=== PATIENT | female | born 1970 | race Two or more races ===

== ENCOUNTER 2019-02-20 09:20 | Inpatient (IN) | payer MEDICAID ==
[2019-02-20] VITALS (11 sets, daily range): BP systolic 104–147; BP diastolic 63–95
[~2019-02-20] VITALS: Ht 162.6 cm; Wt 84.8 kg
--- NOTE | 2019-02-20 09:30 | NUR ---
ED Nurse Note: Patient walked into ED from home c/o periumblicial middle quadrant abdominal pain 10/10 for 1 day, patient reports nausea and vomiting. patient is alert awake x4 ambulatory steady gait, patient on a hopsital gown and placed on a monitor car operator. patient's vital signs stable.
[2019-02-20] MEDS ORDERED: Morphine Sulfate 4mg/ml Inj (IV USE ONLY) IVP ONE ×2 (09:45→13:00)
[2019-02-20] MEDS ORDERED: Isovue-300 100ml vial INJ PRN (09:45)
[2019-02-20 09:49] LABS: APPEARANCE,URINE CLEAR; BILIRUBIN, URINE NEGATIVE (NEGATIVE); COLOR,URINE PALE YELLOW; GLUCOSE, URINE (UA) NEGATIVE (NEGATIVE); KETONES,URINE 1+ (NEGATIVE); LEUKOCYTE ESTERASE ,URINE NEGATIVE (NEGATIVE); NITRITE,URINE NEGATIVE (NEGATIVE); PH,URINE 6 (4.5-8.0); PROTEIN,URINE 1+ (NEGATIVE); UROBILINOGEN,URINE NORMAL MG/DL (0.0-1.0)
[2019-02-20 09:50] LABS: BASOPHILS % (AUTO) 0.9 % (0.0-2.0); EOSINOPHILS % (AUTO) 2.1 % (0.0-3.0); HEMATOCRIT 43.5 % (37.0-47.0); HEMOGLOBIN 14.8 G/DL (12.0-16.0); LYMPHOCYTES % (AUTO) 31.7 % (20.0-45.0); MEAN CORPUSCULAR VOLUME 88 FL (80-99); MONOCYTES % (AUTO) 5.6 % (1.0-10.0); NEUTROPHILS % (AUTO) 59.8 % (45.0-75.0); PLATELET COUNT 233 K/UL (150-450); RED BLOOD COUNT 4.97 M/UL (4.20-5.40); RED CELL DISTRIBUTION WIDTH 11.6 % (11.6-14.8); WHITE BLOOD COUNT 9.2 K/UL (4.8-10.8)
[2019-02-20 10:03] LABS: ANION GAP 12 mmol/L (5-15); BLOOD UREA NITROGEN 12 mg/dL (7-18); CALCIUM 8.3 MG/DL (8.5-10.1); CARBON DIOXIDE 27 MMOL/L (21-32); CHLORIDE 104 MMOL/L (98-107); CREATININE 0.7 MG/DL (0.55-1.30); POTASSIUM 3.2 MMOL/L (3.5-5.1); SODIUM 143 MMOL/L (136-145)
[2019-02-20 10:12] LABS: ALANINE AMINOTRANSFERASE 63 U/L (12-78); ALBUMIN 3.8 G/DL (3.4-5.0); ALBUMIN/GLOBULIN RATIO 0.8 (1.0-2.7); ALKALINE PHOSPHATASE 104 U/L (46-116); ASPARTATE AMINO TRANSFERASE 44 U/L (15-37); BILIRUBIN,TOTAL 0.4 MG/DL (0.2-1.0)
--- NOTE | 2019-02-20 11:10 | NUR ---
ED Nurse Note: patient taken to CT scan.
--- NOTE | 2019-02-20 11:23 | NUR ---
ED Nurse Note: patient came back from CT
[2019-02-20] MEDS ORDERED: Tubing IV Secondary IV ONE (11:57)
--- NOTE | 2019-02-20 11:59 | Diagnostic Imaging Report ---
Clinical Indication: . Umbilical abdominal pain, 10 out of 10 for one day, nausea, vomiting Technique: No oral contrast utilized, per emergency room physician request IV administration nonionic contrast. Venous phase spiral acquisition obtained through the abdomen and pelvis. Multiplanar reconstructions were generated. Total dose length product 957 mGycm. CTDIvol(s) 16 mGy. Dose reduction achieved using automated exposure control Comparison: none Findings: Lack of enteric contrast limits assessment of the GI tract. There is a ventral hernia adjacent to the umbilicus. This contains a loop of distal ileum. Small bowel leading into the hernia sac is only minimally prominent. However, there is some infiltration of the perienteric fat within the hernia sac. Small bowel distal to the hernia is nondistended. The appendix is not definitely visualized, but no findings to suggest acute appendicitis are evident. There is no evidence of colonic diverticulosis or diverticulitis. No free or loculated intraperitoneal gas or fluid is evident. The distal esophagus, stomach, duodenum are unremarkable. The liver is mildly hypoattenuating, consistent with mild fatty change. No focal abnormality. The gallbladder, bile ducts, pancreas, spleen, adrenals, kidneys are unremarkable. No retroperitoneal or mesenteric mass or adenopathy. No pelvic mass or adenopathy. The uterus is absent. The included lung bases are clear except for minimal lingular atelectasis or scar. The bones are unremarkable. Impression: Limited assessment of the GI tract, due to lack of enteric contrast administration Ventral hernia adjacent to the umbilicus, containing a loop of small bowel. Slight infiltration of the fat within the hernia sac raises the possibility of very mild strangulation, and very slight prominence of the entering small bowel raises possibility of a mild degree of obstruction. Correlation with clinical findings is recommended. No other acute abnormality Fatty liver Findings discussed by phone with Dr. Dang in the emergency room at the time of interpretation The CT scanner at [facility] is accredited by the [employer] and the scans are performed using protocols designed to limit radiation exposure to as low as reasonably achievable to attain images of sufficient resolution adequate for diagnostic evaluation.
--- NOTE | 2019-02-20 12:20 | NUR ---
ED Nurse Note: patient educated to remain NPO, nothing by mouth patient verbalized understanding.
--- NOTE | 2019-02-20 12:43 | NUR ---
ED Nurse Note: Report given to Thalia RN, endorsed all plan of care to Thalia Rn.
[2019-02-20] MEDS ORDERED: Ketorolac 30mg Inj IV ONE (13:00)
--- NOTE | 2019-02-20 13:12 | NUR ---
ED Nurse Note: patient transferred to 3E with all of her belongings with LEARNING AND DEVELOPMENT INTERN.
--- NOTE | 2019-02-20 13:15 | NUR ---
NURSE NOTES: Received report from Thalia RN, Tunisian speaking pt a/a/o x4 laying in bed with no signs of distress or other issues at this time. no skin issues. pt able to ambulate around the room with steady gait. IV left AC gauge#18 heplock. call light within reach, bed in lowest position. side rales up x2. I will f/u as needed.
--- NOTE | 2019-02-20 13:16 | Emergency Room Report ---
History of Present Illness General Chief Complaint: Abdominal Pain Source: Patient Present Illness HPI 48-year-old female presents ED for evaluation. Complaining of abdominal pain with nausea and vomiting which started today. Pain is sharp, 9 out of 10, nonradiating. Localized to mid to lower abdomen on the right. Denies fevers or chills. Denies chest pain or shortness of breath. Denies diarrhea. No other aggravating relieving factors. Denies any other associated symptoms Allergies: Coded Allergies: No Known Allergies (Unverified , 02/20/19) Patient History Past Medical History: none Past Surgical History: none Pertinent Family History: none Social History: Denies: smoking, alcohol use, drug use Now: No Immunizations: UTD Reviewed Nursing Documentation: PMH: Agreed; PSxH: Agreed Nursing Documentation-PMH Past Medical History: No Stated History Review of Systems All Other Systems: negative except mentioned in HPI Physical Exam Vital Signs Date Time Temp Pulse Resp B/P (MAP) Pulse Ox O2 Delivery O2 Flow Rate FiO2 02/20/19 09:23 97.5 58 16 138/98 (111) 100 Room Air Sp02 EP Interpretation: reviewed, normal General Appearance: no apparent distress, alert, GCS 15, non-toxic Head: normocephalic, atraumatic Eyes: bilateral eye normal inspection, bilateral eye PERRL ENT: hearing grossly normal, normal pharynx, no angioedema, normal voice Neck: full range of motion, supple/symm/no masses Respiratory: chest non-tender, lungs clear, normal breath sounds, speaking full sentences Cardiovascular #1: regular rate, rhythm, no edema Cardiovascular #2: 2+ carotid (R), 2+ carotid (L), 2+ radial (R), 2+ radial (L) , 2+ dorsalis pedis (R), 2+ dorsalis pedis (L) Gastrointestinal: normal bowel sounds, soft, non-distended, tenderness - palpable hernia mid abdomen. nonreducible Rectal: deferred Genitourinary: normal inspection, no CVA tenderness Musculoskeletal: back normal, gait/station normal, normal range of motion, non- tender Neurologic: alert, oriented x3, responsive, motor strength/tone normal, sensory intact, speech normal Psychiatric: judgement/insight normal, memory normal, mood/affect normal, no suicidal/homicidal ideation Reflexes: 3+ bicep (R), 3+ bicep (L), 3+ tricep (R), 3+ tricep (L), 3+ knee (R) , 3+ knee (L) Lymphatic: no adenopathy Medical Decision Making Diagnostic Impression: Primary Impression: Ventral hernia with bowel obstruction ER Course Hospital Course 48 yo F presents with abd pain Differential diagnoses include: abscess, hernia, SBO Clinical course Patient placed on stretcher. hall monitor. After initial history and physical I ordered labs, IV fluids, UA, pain medication and CT scan Labs - no leukocytosis, Hb/Hct stable, electrolytes ok CT abdomen and pelvis -ventral hernia containing small bowel. some incarceration. some evidence of obstruction Dr Farias consulted. will take patient to OR Case discussed with Dr. Leos and he agreed to accept the patient to his service for further care and support I feel this is a highly complex case requiring extensive working including EKG/ Rhythm strip, Xray/CT/US, Blood/urine lab work, repeat exams while in ED, and administration of strong opiates/narcotics for pain control, admission to hospital or close patient follow up. Diagnosis - ventral hernia with bowel obstruction Patient admitted to floor in serious condition Labs Test 02/20/19 09:29 02/20/19 09:34 02/20/19 12:20 Urine Color Pale yellow Urine Appearance Clear Urine pH 6 (4.5-8.0) Urine Specific [place] 1.015 (1.005-1.035) Urine Protein 1+ (NEGATIVE) Urine Glucose (UA) Negative (NEGATIVE) Urine Ketones 1+ (NEGATIVE) Urine Blood Negative (NEGATIVE) Urine Nitrite Negative (NEGATIVE) Urine Bilirubin Negative (NEGATIVE) Urine Urobilinogen Normal MG/DL (0.0-1.0) Urine Leukocyte Esterase Negative (NEGATIVE) Urine RBC 0 /HPF (0 - 2) Urine WBC 0-2 /HPF (0 - 2) Urine Squamous Epithelial Cells Few /LPF (NONE/OCC) Urine Bacteria Moderate /HPF (NONE) White Blood Count 9.2 K/UL (4.8-10.8) Red Blood Count 4.97 M/UL (4.20-5.40) Hemoglobin 14.8 G/DL (12.0-16.0) Hematocrit 43.5 % (37.0-47.0) Mean Corpuscular Volume 88 FL (80-99) Mean Corpuscular Hemoglobin 29.7 PG (27.0-31.0) Mean Corpuscular Hemoglobin Concent 34.0 G/DL (32.0-36.0) Red Cell Distribution Width 11.6 % (11.6-14.8) Platelet Count 233 K/UL (150-450) Mean Platelet Volume 8.3 FL (6.5-10.1) Neutrophils (%) (Auto) 59.8 % (45.0-75.0) Lymphocytes (%) (Auto) 31.7 % (20.0-45.0) Monocytes (%) (Auto) 5.6 % (1.0-10.0) Eosinophils (%) (Auto) 2.1 % (0.0-3.0) Basophils (%) (Auto) 0.9 % (0.0-2.0) Sodium Level 143 MMOL/L (136-145) Potassium Level 3.2 MMOL/L (3.5-5.1) Chloride Level 104 MMOL/L (98-107) Carbon Dioxide Level 27 MMOL/L (21-32) Anion Gap 12 mmol/L (5-15) Blood Urea Nitrogen 12 mg/dL (7-18) Creatinine 0.7 MG/DL (0.55-1.30) Estimat Glomerular Filtration Rate > 60 mL/min (>60) Glucose Level 172 MG/DL (74-106) Calcium Level 8.3 MG/DL (8.5-10.1) Total Bilirubin 0.4 MG/DL (0.2-1.0) Aspartate Amino Transf (AST/SGOT) 44 U/L (15-37) Alanine Aminotransferase (ALT/SGPT) 63 U/L (12-78) Alkaline Phosphatase 104 U/L (46-116) Total Protein 8.3 G/DL (6.4-8.2) Albumin 3.8 G/DL (3.4-5.0) Globulin 4.5 g/dL Albumin/Globulin Ratio 0.8 (1.0-2.7) Lipase 106 U/L (73-393) Human Chorionic Gonadotropin, Qual Negative (NEGATIVE) Prothrombin Time 10.2 SEC (9.30-11.50) Prothromb Time International Ratio 1.0 (0.9-1.1) Activated Partial Thromboplast Time 27 SEC (23-33) CT/MRI/US Diagnostic Results CT/MRI/US Diagnostic Results : Imaging Test Ordered: CT A/P Impression Findings: Lack of enteric contrast limits assessment of the GI tract. There is a ventral hernia adjacent to the umbilicus. This contains a loop of distal ileum. Small bowel leading into the hernia sac is only minimally prominent. However, there is some infiltration of the perienteric fat within the hernia sac. Small bowel distal to the hernia is nondistended. The appendix is not definitely visualized, but no findings to suggest acute appendicitis are evident. There is no evidence of colonic diverticulosis or diverticulitis. No free or loculated intraperitoneal gas or fluid is evident. The distal esophagus, stomach, duodenum are unremarkable. The liver is mildly hypoattenuating, consistent with mild fatty change. No focal abnormality. The gallbladder, bile ducts, pancreas, spleen, adrenals, kidneys are unremarkable. No retroperitoneal or mesenteric mass or adenopathy. No pelvic mass or adenopathy. The uterus is absent. The included lung bases are clear except for minimal lingular atelectasis or scar. The bones are unremarkable. Last Vital Signs Date Time Temp Pulse Resp B/P (MAP) Pulse Ox O2 Delivery O2 Flow Rate FiO2 02/20/19 10:30 97.5 02/20/19 09:41 56 21 134/95 100 Room Air Status: improved Disposition: ADMITTED INPATIENT Condition: Serious Referrals: NOT CHOSEN IPA/,REFERRING (PCP) Fahad Dang MD Feb 20, 2019 13:15
[2019-02-20] MEDS ORDERED: Bupivacaine 0.25% Inj 30ml INJ ONE ×2 (15:02→17:34)
[2019-02-20] MEDS ORDERED: Bacitracin 50000 Units Vial ONE (15:03)
[2019-02-20] MEDS ORDERED: NS Irrig 1000ml IRRIG ONE ×2 (15:48→16:34)
--- NOTE | 2019-02-20 15:54 | NUR ---
NURSE NOTES: Called and left message to Dr. Leos at [phone] to f/u with admitting orders. awaiting for response.
[2019-02-20] MEDS ORDERED: NS Irrig 1000ml ONE (16:01)
[2019-02-20] MEDS ORDERED: Sterile Water Irrig 1000ml IRRIG ONE (16:01)
[2019-02-20] MEDS ORDERED: LR 1000ml ONE (16:01)
--- NOTE | 2019-02-20 16:04 | Pre-Procedure Note/Attestation ---
Pre-Procedure Note/Attestation Complete Prior to Procedure Planned Procedure: not applicable Procedure Narrative: ventral herniorrhaphy with application of mesh Indications for Procedure Pre-Operative Diagnosis: incarcerated ventral hernia Attestation I attest that I discussed the nature of the procedure; its benefits; risks and complications; and alternatives (and the risks and benefits of such alternatives ), prior to the procedure, with the patient (or the patient's legal community service representative). I attest that, if there was a reasonable possibility of needing a blood transfusion, the patient (or the patient's legal community service representative) was given the [facility] standardized written summary, pursuant to the [place] Blood Safety Act ([place] Health and Safety Code # 1645, as amended). I attest that I re-evaluated the patient just prior to the surgery and that there has been no change in the patient's H&P, except as documented below: Alia Farias MD Feb 20, 2019 16:04
[2019-02-20] MEDS ORDERED: Sodium Chloride 10ml vial INJ ONE (16:10)
[2019-02-20] MEDS ORDERED: Lidocaine 1% MPF 10mg/ml 5ml ONE (16:10)
[2019-02-20] MEDS ORDERED: Dexamethasone 4mg/ml vial ONE (16:12)
[2019-02-20] MEDS ORDERED: LR 1000ml 1,000 ML IVLG SCH (16:12)
[2019-02-20] MEDS ORDERED: DiphenhydrAMINE 50mg/ml Inj IVP PRN (16:15)
[2019-02-20] MEDS ORDERED: Labetalol 5mg/ml 20ml vial IV PRN (16:15)
[2019-02-20] MEDS ORDERED: Hydromorphone 0.5mg/0.5ml inj IVP PRN ×2 (16:15→18:00)
[2019-02-20] MEDS ORDERED: HYDROcodone/Acetamin 7.5/325 tab ORAL PRN (16:15)
[2019-02-20] MEDS ORDERED: Ketorolac 30mg Inj IV PRN ×2 (16:15)
[2019-02-20] MEDS ORDERED: HYDROcodone/Acetamin 5/325 tab ORAL PRN (16:15)
[2019-02-20] MEDS ORDERED: Atropine Sulfate 0.4mg/ml inj IVP PRN (16:15)
[2019-02-20] MEDS ORDERED: Metoclopramide 10mg/2ml Inj IVP PRN ×2 (16:15→18:00)
[2019-02-20] MEDS ORDERED: Midazolam 2mg/2ml Inj IVP PRN (16:15)
[2019-02-20] MEDS ORDERED: LORazepam Inj 2mg/ml 1ml IV PRN (16:15)
[2019-02-20] MEDS ORDERED: oxyCODONE HCL/Acetaminophen 5/325mg ORAL PRN (16:15)
[2019-02-20] MEDS ORDERED: fentaNYL 100 mcg/2 mL IV PRN (16:15)
[2019-02-20] MEDS ORDERED: Meperidine 50mg/ml Inj(FOR RIGORS ONLY) IVP PRN (16:15)
--- NOTE | 2019-02-20 16:16 | Anethesia Preoperative Eval ---
Anesthesia Pre-op PMH/ROS General Date of Evaluation: Feb 20, 2019 Time of Evaluation: 16:01 Anesthesiologist: Julianne ASA Score: ASA 3 Mallampati Score Class I : Soft palate, uvula, fauces, pillars visible Class II: Soft palate, uvula, fauces visible Class III: Soft palate, base of uvula visible Class IV: Only hard plate visible Mallampati Classification: Class II Surgeon: Jarrett Diagnosis: Ventral Hernia Surgical Procedure: Ventral Hernia Repair Anesthesia History: none Family History: no anesthesia problems Allergies: Coded Allergies: No Known Allergies (Unverified , 02/20/19) Medications: see eMAR Patient NPO?: Yes NPO Date: Feb 20, 2019 NPO Time: 1200 Past Medical History Cardiovascular: Reports: HTN Gastrointestinal/Genitourinary: Reports: GERD Hematology/Immune: Reports: anemia, other - Ovarian CA Other: obesity - BMI 34 PSxH Narrative: MARLEY Anesthesia Pre-op Phys. Exam Physician Exam Last Vital Signs Date Time Temp Pulse Resp B/P (MAP) Pulse Ox O2 Delivery O2 Flow Rate FiO2 02/20/19 13:36 97.5 02/20/19 13:15 Room Air 02/20/19 13:12 57 16 132/92 100 Constitutional: NAD Neurologic: CN 2-12 intact Cardiovascular: RRR Respiratory: CTA Gastrointestinal: S/NT/ND Airway Exam Mallampati Score: Class II MO: full ROM: full Teeth: missing, intact Anesthesia Pre-op A/P Labs Hematology Test 02/20/19 09:34 White Blood Count 9.2 K/UL (4.8-10.8) Red Blood Count 4.97 M/UL (4.20-5.40) Hemoglobin 14.8 G/DL (12.0-16.0) Hematocrit 43.5 % (37.0-47.0) Mean Corpuscular Volume 88 FL (80-99) Mean Corpuscular Hemoglobin 29.7 PG (27.0-31.0) Mean Corpuscular Hemoglobin Concent 34.0 G/DL (32.0-36.0) Red Cell Distribution Width 11.6 % (11.6-14.8) Platelet Count 233 K/UL (150-450) Mean Platelet Volume 8.3 FL (6.5-10.1) Neutrophils (%) (Auto) 59.8 % (45.0-75.0) Lymphocytes (%) (Auto) 31.7 % (20.0-45.0) Monocytes (%) (Auto) 5.6 % (1.0-10.0) Eosinophils (%) (Auto) 2.1 % (0.0-3.0) Basophils (%) (Auto) 0.9 % (0.0-2.0) Coagulation Test 02/20/19 12:20 Prothrombin Time 10.2 SEC (9.30-11.50) Prothromb Time International Ratio 1.0 (0.9-1.1) Activated Partial Thromboplast Time 27 SEC (23-33) Chemistry Test 02/20/19 09:34 Sodium Level 143 MMOL/L (136-145) Potassium Level 3.2 MMOL/L (3.5-5.1) L Chloride Level 104 MMOL/L (98-107) Carbon Dioxide Level 27 MMOL/L (21-32) Anion Gap 12 mmol/L (5-15) Blood Urea Nitrogen 12 mg/dL (7-18) Creatinine 0.7 MG/DL (0.55-1.30) Estimat Glomerular Filtration Rate > 60 mL/min (>60) Glucose Level 172 MG/DL (74-106) H Calcium Level 8.3 MG/DL (8.5-10.1) L Total Bilirubin 0.4 MG/DL (0.2-1.0) Aspartate Amino Transf (AST/SGOT) 44 U/L (15-37) H Alanine Aminotransferase (ALT/SGPT) 63 U/L (12-78) Alkaline Phosphatase 104 U/L (46-116) Total Protein 8.3 G/DL (6.4-8.2) H Albumin 3.8 G/DL (3.4-5.0) Globulin 4.5 g/dL Albumin/Globulin Ratio 0.8 (1.0-2.7) L Lipase 106 U/L (73-393) Human Chorionic Gonadotropin, Qual Negative (NEGATIVE) Serum Test Test 02/20/19 09:34 Human Chorionic Gonadotropin, Qual Negative (NEGATIVE) Risk Assessment & Plan Assessment: ASA 3 Plan: GA, SED, GlideScope Go Status Change Before Surgery: No Pre-Antibiotics Dru Gram Ancef IV Given Within 1 Hr of Incision: Yes Time Given: 16:21 Yared Whitaker MD Feb 20, 2019 16:16
[2019-02-20] MEDS ORDERED: Propofol 200mg/20ml IV ONE (16:17)
[2019-02-20] MEDS ORDERED: Metoprolol 5mg/5ml Inj ONE (16:33)
--- NOTE | 2019-02-20 16:49 | Immediate Post-Op Evaluation ---
Immediate Post-Op Evalulation Immediate Post-Op Evalulation Procedure: Ventral Hernia Repair Date of Evaluation: Feb 20, 2019 Time of Evaluation: 18:08 IV Fluids: 500 LR Blood Products: 0 Estimated Blood Loss: 25 Urinary Output: 220 Blood Pressure Systolic: 127 Blood Pressure Diastolic: 92 Pulse Rate: 95 Respiratory Rate: 16 O2 Sat by Pulse Oximetry: 99 Temperature (Fahrenheit): 98.2 Pain Score (1-10): 2 Nausea: No Vomiting: No Complications 0 Patient Status: awake, reacts, patent, extubated, none Hydration Status: adequate Dru Gram Ancef IV Given Within 1 Hr of Incision: Yes Time Given: 16:21 Yared Whitaker MD Feb 20, 2019 16:49
[2019-02-20] MEDS ORDERED: Glycopyrrolate 0.2mg/ml 1ml Vial ONE ×2 (16:56→17:01)
--- NOTE | 2019-02-20 17:00 | Pre-op HX & Phy Repo 2 SIG ---
DATE OF ADMISSION: 02/20/2019 PREOPERATIVE CONSULTATION REASON FOR CONSULTATION: Abdominal pain. REQUESTING PHYSICIAN: Emergency room physician. HISTORY OF PRESENT ILLNESS: This is a 48-year-old female, who presented to emergency room complaining of abdominal pain. She stated that the pain is located at the periumbilical mainly above the umbilicus. This is steady. No radiation. This pain has been associated with nausea and vomiting. She had a normal bowel movement today. She stated that she has been having this pain off and on for about 7 months, but since last night the pain has been steady and very severe and it had not released. PAST MEDICAL HISTORY: She denies allergies, asthma, diabetes, hypertension, cardiac or renal diseases. PAST SURGICAL HISTORY: Include 2 C-sections and hysterectomy due to the ovarian cancer 6 years ago. MEDICATIONS: Omeprazole. SOCIAL HISTORY: The patient is a 48-year-old female, who lives as a common-law and mother of 3 children. Currently, she is unemployed. She denies drinking, but occasionally smokes. REVIEW OF SYSTEMS: Noncontributory. PHYSICAL EXAMINATION: GENERAL: The patient appeared to be a well-developed, well-nourished, mildly obese, 48-year-old female, lying on the gurney, complaining of abdominal pain. HEENT: Head is normocephalic and atraumatic. Eyes, pupils are equal, round, and reactive to light. Mouth is clear. NECK: There is no palpable thyromegaly or adenopathy. CHEST: Clear to auscultation and percussion. HEART: There is no gallop or murmur. S1 and S2 are within normal limits. ABDOMEN: Mildly obese. Soft with tender lump about and right to the umbilicus. This lump is irreducible. She has a scar of the midline incision below the umbilicus. Bowel sounds are present. GENITAL: Deferred. EXTREMITIES: Within normal limits. LABORATORY AND DIAGNOSTIC DATA: CBC is normal. Chemistry is within normal limits. test is negative although she does not have any of uterus. CAT scan of the abdomen has shown a hernia next to the umbilicus. ASSESSMENT: Incarcerated ventral hernia. PLAN: After rehydration, the patient will undergo a ventral herniorrhaphy with application of mesh plug. The risks and benefits have been explained to her. She understood and granted the consent. lAia Farias M.D. DR: UVALDO JOB#: [id number] CC:
[2019-02-20] MEDS ORDERED: Neostigmine 1mg/ml 10ml Inj ONE (17:01)
[2019-02-20] MEDS ORDERED: Acetaminophen (Non formulary) 100 ML IV ONE (17:15)
--- NOTE | 2019-02-20 17:47 | Brief Operative Note ---
Immediate Post Operative Note Operative Note Pre-op Diagnosis: incarcerated ventral hernia Post-op Diagnosis: same as pre-op Findings: consistent w/pre-op dx studies Surgeon: MD Cely Sales Engineer Engineered Products: none Anesthesiologist: Dr. Whitaker Anesthesia: general Specimen: none Complications: none Condition: stable Fluids: per anesthesiologist Estimated Blood Loss: volume - 30 ml Drains: none Implant(s) used?: Yes Alia Farias MD Feb 20, 2019 17:47
--- NOTE | 2019-02-20 19:00 | NUR ---
NURSE NOTES: Received report from Alessandra RAMOS, pt in stable condition with no signs of distress or other issues at this time. Surgical dressing dry and intact. Alessandra also given report to incoming nurse Caprice RAMOS. IV on the left AC gauge #18 running LR at 100ml. incoming nurse will review orders and addressed as needed. call light within reach, bed in lowest position. side rales up. I will f/u as needed.
--- NOTE | 2019-02-20 19:00 | NUR ---
Receive a report from ROLL SLICING MACHINE TENDERAlessandra. Round is done. Pt is awake and alert. No acute distress noted. Breathing is even and non labored. Denies pain on surgical site and site is clear and dry without oozing and bleeding. Encourage to cough and breathe deeply. Provide oral intake. Inform pt of self-voiding. Call light within reach. Will continue to monitor.
--- NOTE | 2019-02-20 19:33 | NUR ---
HAND-OFF: Report given to donell RN, pt in stable condition.
[2019-02-20] MEDS: D5 1/2NS w/KCl 20mEq 1,000 ML IV SCH (20:08)
[2019-02-20] MEDS: Docusate 100mg cap ORAL SCH (20:08)
--- NOTE | 2019-02-20 20:30 | NUR ---
NURSE NOTES: Assist pt to bathroom and done self-voiding without feeling discomfort. Complain for mild dizziness when encourage for ambulation. Assist back to bed and explain for S/Eof anesthesia and encourage slow movement while moving. Pt verbalizes understanding. Denies pain. Op site kept clean and dry. Will continue to monitor.
--- NOTE | 2019-02-20 22:00 | Operative Note - Dictated ---
DATE OF OPERATION: 02/20/2019 PREOPERATIVE DIAGNOSIS: Incarcerated ventral hernia. POSTOPERATIVE DIAGNOSIS: Incarcerated ventral hernia. OPERATION: 1. Ventral herniorrhaphy with application of mesh plug. 2. Reconstruction of the umbilicus. COMPLICATIONS: None. SURGEON: Alia Farias M.D. INTERACTIVE MULTIMEDIA DESIGNER: None. ANESTHESIA: General with endotracheal tube. ANESTHESIOLOGIST: Yared Whitaker M.D. INDICATION: This is a 48-year-old, female, who presented to emergency room complaining of abdominal pain and vomiting. She stated that for about 7 months she has been having pain off and on, but since last night, the pain has been steady and severe. The pain was located above the umbilicus and was associated with nausea and vomiting. Physical examination showed the tender irreducible lump above and right to the umbilicus. CBC and chemistry was normal. CAT scan of the abdomen was interpreted as incarcerated ventral hernia. PROCEDURE IN DETAIL: The patient was placed supine on the operating table and after general anesthesia with endotracheal tube, the abdomen was properly prepped and draped. A current incision was given above the umbilicus and was carried sharply through the subcutaneous tissue and Stacy's fascia. It seemed that during the induction of the anesthesia and prepping the abdomen, the hernia was reduced. Exploration of the area was performed and the hernia sac was identified and this hernia sac was empty. The hernia sac, which had extensive adhesions to the surrounding tissue was gradually dissected and isolated. Finally, the defect in the fascia was exposed, which was about half an inch in diameter. The fascia around this defect was isolated about [address] around[address] The hernia sac was inverted in the intraperitoneal cavity and then a medium-sized mesh plug was placed in the defect inside the sac, which was used as a sleeve. The plug was secured in place with multiple interrupted sutures of 0 Prolene. After the application of the plug, the incision was thoroughly irrigated with antibiotic solution and then it was infiltrated with a total of 15 mL of Marcaine 0.25%. After this, the defect in the fascia was obliterated in a transverse fashion over the plug with the help of the running suture of #1 Prolene. After this repair, the umbilicus was reconstructed with application of multiple interrupted suture of 2-0 Vicryl between the fascia and base of the umbilicus. The subcutaneous tissue was approximated in 2 layers with a 3-0 plain catgut and the skin incision, which was over 3 inches was approximated with running subcuticular suture of 4-0 chromic. The patient tolerated the procedure very well and was transferred to recovery room in stable condition and extubated. The sponge and needle count correct. Estimated blood loss 30 mL. Condition of the patient at the end of procedure is stable. Alia Farias M.D. DR: GUILLERMINA JOB#: [id number] CC:
[2019-02-21] VITALS: BP 119/64
[2019-02-21] MEDS: ceFAZolin sod 1 GM in D5W 55 ML IV SCH ×2 (00:29→08:21)
--- NOTE | 2019-02-21 03:30 | History and Physical Report ---
DATE OF ADMISSION: 02/20/2019 HISTORY OF PRESENT ILLNESS: This is a 48-year-old female who is in the hospital with abdominal pain and nausea. She also reported vomiting. She has been worked up in the ER and found to have evidence of an incarcerated hernia. She was taken urgently to the operating room by Dr. Farias and has at that time undergone surgery. She is seen resting comfortably in the PACU. The patient underwent a repair of incarcerated ventral hernia. PAST MEDICAL HISTORY: The patient denies any past history of any medical illnesses, asthma, diabetes, or hypertension. PAST SURGICAL HISTORY: , hysterectomy, carcinoma. HOME MEDICATIONS: Omeprazole. REVIEW OF SYSTEMS: Denied any headache, hematemesis, melena, or hematochezia. SOCIAL HISTORY: Denies alcohol or tobacco use. PHYSICAL EXAMINATION: GENERAL: Revealed a 48-year-old female. HEENT: Unremarkable. LUNGS: Clear breath sounds. ABDOMEN: Soft. EXTREMITIES: There is no edema. NEUROLOGIC: Nonfocal. ABDOMEN: She has distended abdomen with hernia, earlier, post surgeries, the surgical scar is in place. LABORATORY DATA: Lab testing shows normal CBC and BMP. Glucose 172 and potassium 3.2. Coags negative. negative. IMAGING STUDIES: Confirmed findings of incarcerated ventral hernia. IMPRESSION: 1. Status post repair of incarcerated ventral hernia. 2. . DISCUSSION: We will admit her to the hospital. We will follow the licensed architect. Start IV fluids. Keep NPO, SCDs. We will follow carefully. Zak Leos M.D. DR: DONALDO JOB#: [id number] CC:
[2019-02-21 04:00] VITALS: BP 122/61
[2019-02-21] MEDS: D5 1/2NS w/KCl 20mEq 1,000 ML IV SCH (05:51)
[2019-02-21 06:24] LABS: HEMATOCRIT 38.5 % (37.0-47.0); HEMOGLOBIN 13.5 G/DL (12.0-16.0); MEAN CORPUSCULAR VOLUME 87 FL (80-99); PLATELET COUNT 211 K/UL (150-450); RED BLOOD COUNT 4.44 M/UL (4.20-5.40); RED CELL DISTRIBUTION WIDTH 11.9 % (11.6-14.8); WHITE BLOOD COUNT 11.2 K/UL (4.8-10.8)
--- NOTE | 2019-02-21 06:30 | NUR ---
NURSE NOTES: Denies pain. Pt ambulates in the hallway. Relieve back pain after ambulation. No N/V noted. Will continue to monitor.
[2019-02-21 06:41] LABS: ANION GAP 9 mmol/L (5-15); BLOOD UREA NITROGEN 8 mg/dL (7-18); CALCIUM 8.1 MG/DL (8.5-10.1); CARBON DIOXIDE 25 MMOL/L (21-32); CHLORIDE 106 MMOL/L (98-107); CREATININE 0.7 MG/DL (0.55-1.30); POTASSIUM 3.8 MMOL/L (3.5-5.1); SODIUM 140 MMOL/L (136-145)
--- NOTE | 2019-02-21 06:59 | NUR ---
NURSE NOTES: Encourage to I/S while wake and deep breathing with coughing. Pt verbalizes understanding.
--- NOTE | 2019-02-21 07:30 | NUR ---
HAND-OFF: Report given to RICHARD Zamudio. Round is done.
--- NOTE | 2019-02-21 07:44 | NUR ---
NURSE NOTES: Received report from RICHARD Vasques. Rounding done with outgoing nurse. Pt a/o x 4, in bed, having a breakfast. Friend is at bedside. No respiratory discomfort noted. c/o abd pain as 10/12, pain medicine will be given as MD ordered. Abd. surgical site dressing is C/D/I. SCD is on. Lt AC IV access is patent. Bed in lowest position, call light within reach. Will continue to monitor.
[2019-02-21 08:00] VITALS: BP 114/76
[2019-02-21] MEDS: Docusate 100mg cap ORAL SCH (08:21)
[2019-02-21] MEDS: HYDROmorphone 1mg/ml Carpuject IVP PRN ×2 (08:22→13:07)
--- NOTE | 2019-02-21 10:30 | Pulmonology Progress Note ---
Subjective Interval Events: Doing well POD #1 Constitutional: Reports: no symptoms HEENT: Repors: no symptoms Respiratory: Reports: no symptoms Cardiovascular: Reports: no symptoms Gastrointestinal/Abdominal: Reports: no symptoms Allergies: Coded Allergies: No Known Allergies (Unverified , 02/20/19) Objective Last 24 Hour Vital Signs Date Time Temp Pulse Resp B/P (MAP) Pulse Ox O2 Delivery O2 Flow Rate FiO2 02/21/19 09:00 Room Air 02/21/19 08:00 97.8 81 18 114/76 (89) 94 02/21/19 04:00 98.4 75 18 122/61 (81) 96 02/21/19 00:00 98.2 79 18 119/64 (82) 95 02/20/19 21:00 Room Air 02/20/19 20:00 98.2 72 18 128/81 (97) 96 02/20/19 19:00 98.6 83 18 104/63 (77) 94 02/20/19 18:40 98.1 71 19 133/78 96 Nasal Cannula 3 02/20/19 18:27 82 17 136/79 98 Nasal Cannula 3 02/20/19 18:17 82 19 139/83 96 Nasal Cannula 3 02/20/19 18:07 79 18 147/84 98 Nasal Cannula 3 02/20/19 18:02 83 19 138/91 99 Simple Mask 6 02/20/19 17:57 98.0 90 22 127/92 99 Simple Mask 6 02/20/19 17:53 95 16 99 02/20/19 16:00 98.4 90 16 125/72 (89) 98 02/20/19 13:36 97.5 02/20/19 13:36 97.5 02/20/19 13:15 Room Air 02/20/19 13:12 97.5 57 16 132/92 100 Room Air 02/20/19 13:00 98.4 78 16 104/68 (80) 98 02/20/19 13:00 97.5 57 16 132/92 100 Room Air 02/20/19 10:30 97.5 Intake and Output 02/20/19 02/21/19 19:00 07:00 Intake Total 700 ml 1560 ml Output Total 245 ml Balance 455 ml 1560 ml Intake Oral 360 ml IV Total 700 ml 1200 ml Output Urine Total 220 ml Estimated Blood Loss 25 ml # Voids 3 General Appearance: WD/WN HEENT: normocephalic Respiratory/Chest: chest wall non-tender, lungs clear Cardiovascular: normal peripheral pulses Abdomen: hypoactive bowel sounds Microbiology Date/Time Source Procedure Growth Status 02/20/19 09:29 Urine,Clean Catch Urine Culture - Preliminary Resulted Laboratory Tests 02/20/19 12:20: Prothrombin Time 10.2, Prothromb Time International Ratio 1.0, Activated Partial Thromboplast Time 27 02/21/19 05:10: White Blood Count 11.2H, Red Blood Count 4.44, Hemoglobin 13.5, Hematocrit 38.5 , Mean Corpuscular Volume 87, Mean Corpuscular Hemoglobin 30.4, Mean Corpuscular Hemoglobin Concent 35.0, Red Cell Distribution Width 11.9, Platelet Count 211, Mean Platelet Volume 8.1, Neutrophils (%) (Auto) , Lymphocytes (%) ( Auto) , Monocytes (%) (Auto) , Eosinophils (%) (Auto) , Basophils (%) (Auto) , Sodium Level 140, Potassium Level 3.8, Chloride Level 106, Carbon Dioxide Level 25, Anion Gap 9, Blood Urea Nitrogen 8, Creatinine 0.7, Estimat Glomerular Filtration Rate > 60, Glucose Level 184H, Calcium Level 8.1L Current Medications Medications (Trade) Dose Ordered Sig/Hao Route PRN Reason Start Time Stop Time Status Last Admin Dose Admin Acetaminophen (Tylenol) 650 mg Q6H PRN ORAL Mild Pain (Pain Scale 1-3) 02/20/19 18:00 03/22/19 17:59 Dextrose/ Electrolytes 1,000 ml @ 100 mls/hr Q10H IV 02/20/19 19:30 03/22/19 19:29 02/21/19 05:51 Docusate Sodium (Colace) 100 mg TWICE A DAY ORAL 02/20/19 19:00 03/22/19 18:59 02/21/19 08:21 Hydromorphone HCl (Dilaudid) 0.5 mg Q3H PRN IVP Pain Score 1-3 02/20/19 18:00 02/27/19 17:59 Hydromorphone HCl (Dilaudid) 1 mg Q3H PRN IVP pain score 4-6 02/20/19 18:00 02/27/19 17:59 02/21/19 08:22 Iopamidol (Isovue-300 100ml) 100 ml NOW PRN INJ Radiology Procedure 02/20/19 09:45 Metoclopramide HCl (Reglan) 10 mg Q6H PRN IVP Nausea & Vomiting 02/20/19 18:00 03/22/19 17:59 Ondansetron HCl (Zofran) 4 mg Q6H PRN IVP Nausea & Vomiting 02/20/19 18:00 03/22/19 17:59 Pantoprazole (Protonix) 40 mg DAILY ORAL 02/21/19 09:00 03/23/19 08:59 02/21/19 08:21 Zak Leos MD Feb 21, 2019 10:30
--- NOTE | 2019-02-21 10:31 | Pulmonology Progress Note ---
Assessment/Plan Assessment/Plan IMPRESSION: 1. Status post repair of incarcerated ventral hernia. DISCUSSION: Continue IV fluids. Keep NPO, SCDs. I will follow carefully. Subjective Interval Events: Previously note incomplete Constitutional: Reports: no symptoms HEENT: Repors: no symptoms Respiratory: Reports: no symptoms Cardiovascular: Reports: no symptoms Gastrointestinal/Abdominal: Reports: no symptoms Allergies: Coded Allergies: No Known Allergies (Unverified , 02/20/19) Objective Last 24 Hour Vital Signs Date Time Temp Pulse Resp B/P (MAP) Pulse Ox O2 Delivery O2 Flow Rate FiO2 02/21/19 09:00 Room Air 02/21/19 08:00 97.8 81 18 114/76 (89) 94 02/21/19 04:00 98.4 75 18 122/61 (81) 96 02/21/19 00:00 98.2 79 18 119/64 (82) 95 02/20/19 21:00 Room Air 02/20/19 20:00 98.2 72 18 128/81 (97) 96 02/20/19 19:00 98.6 83 18 104/63 (77) 94 02/20/19 18:40 98.1 71 19 133/78 96 Nasal Cannula 3 02/20/19 18:27 82 17 136/79 98 Nasal Cannula 3 02/20/19 18:17 82 19 139/83 96 Nasal Cannula 3 02/20/19 18:07 79 18 147/84 98 Nasal Cannula 3 02/20/19 18:02 83 19 138/91 99 Simple Mask 6 02/20/19 17:57 98.0 90 22 127/92 99 Simple Mask 6 02/20/19 17:53 95 16 99 02/20/19 16:00 98.4 90 16 125/72 (89) 98 02/20/19 13:36 97.5 02/20/19 13:36 97.5 02/20/19 13:15 Room Air 02/20/19 13:12 97.5 57 16 132/92 100 Room Air 02/20/19 13:00 98.4 78 16 104/68 (80) 98 02/20/19 13:00 97.5 57 16 132/92 100 Room Air Intake and Output 02/20/19 02/21/19 19:00 07:00 Intake Total 700 ml 1560 ml Output Total 245 ml Balance 455 ml 1560 ml Intake Oral 360 ml IV Total 700 ml 1200 ml Output Urine Total 220 ml Estimated Blood Loss 25 ml # Voids 3 General Appearance: no acute distress HEENT: normocephalic Respiratory/Chest: chest wall non-tender, lungs clear Cardiovascular: normal peripheral pulses, normal rate Abdomen: hypoactive bowel sounds Microbiology Date/Time Source Procedure Growth Status 02/20/19 09:29 Urine,Clean Catch Urine Culture - Preliminary Resulted Laboratory Tests 02/20/19 12:20: Prothrombin Time 10.2, Prothromb Time International Ratio 1.0, Activated Partial Thromboplast Time 27 02/21/19 05:10: White Blood Count 11.2H, Red Blood Count 4.44, Hemoglobin 13.5, Hematocrit 38.5 , Mean Corpuscular Volume 87, Mean Corpuscular Hemoglobin 30.4, Mean Corpuscular Hemoglobin Concent 35.0, Red Cell Distribution Width 11.9, Platelet Count 211, Mean Platelet Volume 8.1, Neutrophils (%) (Auto) , Lymphocytes (%) ( Auto) , Monocytes (%) (Auto) , Eosinophils (%) (Auto) , Basophils (%) (Auto) , Sodium Level 140, Potassium Level 3.8, Chloride Level 106, Carbon Dioxide Level 25, Anion Gap 9, Blood Urea Nitrogen 8, Creatinine 0.7, Estimat Glomerular Filtration Rate > 60, Glucose Level 184H, Calcium Level 8.1L Current Medications Medications (Trade) Dose Ordered Sig/Hao Route PRN Reason Start Time Stop Time Status Last Admin Dose Admin Acetaminophen (Tylenol) 650 mg Q6H PRN ORAL Mild Pain (Pain Scale 1-3) 02/20/19 18:00 03/22/19 17:59 Dextrose/ Electrolytes 1,000 ml @ 100 mls/hr Q10H IV 02/20/19 19:30 03/22/19 19:29 02/21/19 05:51 Docusate Sodium (Colace) 100 mg TWICE A DAY ORAL 02/20/19 19:00 03/22/19 18:59 02/21/19 08:21 Hydromorphone HCl (Dilaudid) 0.5 mg Q3H PRN IVP Pain Score 1-3 02/20/19 18:00 02/27/19 17:59 Hydromorphone HCl (Dilaudid) 1 mg Q3H PRN IVP pain score 4-6 02/20/19 18:00 02/27/19 17:59 02/21/19 08:22 Iopamidol (Isovue-300 100ml) 100 ml NOW PRN INJ Radiology Procedure 02/20/19 09:45 Metoclopramide HCl (Reglan) 10 mg Q6H PRN IVP Nausea & Vomiting 02/20/19 18:00 03/22/19 17:59 Ondansetron HCl (Zofran) 4 mg Q6H PRN IVP Nausea & Vomiting 02/20/19 18:00 03/22/19 17:59 Pantoprazole (Protonix) 40 mg DAILY ORAL 02/21/19 09:00 03/23/19 08:59 02/21/19 08:21 Zak Leos MD Feb 21, 2019 10:31
[2019-02-21 12:00] VITALS: BP 112/68
--- NOTE | 2019-02-21 12:16 | 48 Hour Post Anesthesia Eval ---
Post Anesthesia Evaluation Procedure: Ventral Hernia Repair Date of Evaluation: Feb 21, 2019 Airway: patent Nausea: No Vomiting: No Pain Intensity: 0 Hydration Status: adequate Cardiopulmonary Status: at baseline Mental Status/LOC: patient returned to baseline Post-Anesthesia Complications: 0 Follow-up care needed: ready to discharge Karissa Brito MD Feb 21, 2019 12:16
--- NOTE | 2019-02-21 12:24 | General Surgery Progress Note ---
General Surgery-Progress Note Subjective Symptoms: improved Objective Last 24 Hour Vital Signs Date Time Temp Pulse Resp B/P (MAP) Pulse Ox O2 Delivery O2 Flow Rate FiO2 02/21/19 12:00 98.2 71 18 112/68 (83) 94 02/21/19 09:00 Room Air 02/21/19 08:00 97.8 81 18 114/76 (89) 94 02/21/19 04:00 98.4 75 18 122/61 (81) 96 02/21/19 00:00 98.2 79 18 119/64 (82) 95 02/20/19 21:00 Room Air 02/20/19 20:00 98.2 72 18 128/81 (97) 96 02/20/19 19:00 98.6 83 18 104/63 (77) 94 02/20/19 18:40 98.1 71 19 133/78 96 Nasal Cannula 3 02/20/19 18:27 82 17 136/79 98 Nasal Cannula 3 02/20/19 18:17 82 19 139/83 96 Nasal Cannula 3 02/20/19 18:07 79 18 147/84 98 Nasal Cannula 3 02/20/19 18:02 83 19 138/91 99 Simple Mask 6 02/20/19 17:57 98.0 90 22 127/92 99 Simple Mask 6 02/20/19 17:53 95 16 99 02/20/19 16:00 98.4 90 16 125/72 (89) 98 02/20/19 13:36 97.5 02/20/19 13:36 97.5 02/20/19 13:15 Room Air 02/20/19 13:12 97.5 57 16 132/92 100 Room Air 02/20/19 13:00 98.4 78 16 104/68 (80) 98 02/20/19 13:00 97.5 57 16 132/92 100 Room Air I&O Intake and Output 02/20/19 02/21/19 19:00 07:00 Intake Total 700 ml 1560 ml Output Total 245 ml Balance 455 ml 1560 ml Intake Oral 360 ml IV Total 700 ml 1200 ml Output Urine Total 220 ml Estimated Blood Loss 25 ml # Voids 3 Dressing: dry Respiratory: clear Abdomen: soft, flat, tenderness, present bowel sounds Extremities: no tenderness Laboratory Tests Test 02/21/19 05:10 White Blood Count 11.2 K/UL (4.8-10.8) H Red Blood Count 4.44 M/UL (4.20-5.40) Hemoglobin 13.5 G/DL (12.0-16.0) Hematocrit 38.5 % (37.0-47.0) Mean Corpuscular Volume 87 FL (80-99) Mean Corpuscular Hemoglobin 30.4 PG (27.0-31.0) Mean Corpuscular Hemoglobin Concent 35.0 G/DL (32.0-36.0) Red Cell Distribution Width 11.9 % (11.6-14.8) Platelet Count 211 K/UL (150-450) Mean Platelet Volume 8.1 FL (6.5-10.1) Neutrophils (%) (Auto) % (45.0-75.0) Lymphocytes (%) (Auto) % (20.0-45.0) Monocytes (%) (Auto) % (1.0-10.0) Eosinophils (%) (Auto) % (0.0-3.0) Basophils (%) (Auto) % (0.0-2.0) Sodium Level 140 MMOL/L (136-145) Potassium Level 3.8 MMOL/L (3.5-5.1) Chloride Level 106 MMOL/L (98-107) Carbon Dioxide Level 25 MMOL/L (21-32) Anion Gap 9 mmol/L (5-15) Blood Urea Nitrogen 8 mg/dL (7-18) Creatinine 0.7 MG/DL (0.55-1.30) Estimat Glomerular Filtration Rate > 60 mL/min (>60) Glucose Level 184 MG/DL (74-106) H Calcium Level 8.1 MG/DL (8.5-10.1) L Assessment Additional Comments S/P incarcerated ventral hernia Plan Additional Comments discharge home Alia Farias MD Feb 21, 2019 12:24
--- NOTE | 2019-02-21 12:26 | Discharge Instructions ---
Discharge Instructions Discharge Instructions Follow up with: my office one week Diet: regular Activity: as tolerated For Surgical Patients Clean and Dry: other - dressing will be removed by surgeon May shower: Yes For Congestive Heart Failure Reminder Report to your physician any weight gain of 5 pounds or more in one week. Alia Farias MD Feb 21, 2019 12:26
[2019-02-21] MEDS ORDERED: CEPHALEXIN500 MG ORAL (13:00)
[2019-02-21] MEDS ORDERED: COLACE100 MG ORAL (13:01)
[2019-02-21] MEDS ORDERED: TRAMADOL HCL50 MG ORAL (13:01)
--- NOTE | 2019-02-21 16:00 | NUR ---
NURSE NOTES: Discharge instruction was given to pt. All belongings checked and pt signed. IV access/arm band removed. Pt a/o x 4. Pt discharged accompanied by family member.
--- NOTE | 2019-02-21 16:15 | NUR ---
CASE MANAGEMENT:REVIEW 02/20/19 48YR OLD FEMALE PRESENTED TO ER CC; ABDOMINAL PAIN W/NAUSEA AND VOMITING SI: VENTRAL HERNIA W/OBSTRUCTION 97.5 58 16 138/98 100% ON RA K-3.2 IS: IV ZOFRAN CT BAD/PELVIS URINE CX IV MORPHINE 500CC NS BOLUS : TO SURGERY IS: VENTRAL HERNIORRHAPHY W/APPLICATION OF MESH AND RECONSTRUCTION OF THE UMBILICUS INTERQUAL CRITERIA MET 02/21/19 DISCHARGE HOME
--- NOTE | 2019-02-22 10:12 | Discharge Summary ---
Discharge Summary Discharge Summary _ DATE OF ADMISSION: 02/20/2019 DATE OF DISCHARGE: 02/21/2019 DISCHARGED BY: Dr. Leos REASON FOR ADMISSION: 48 years old female with no significant past medical history, presented to emergency room for evaluation. Patient complained of abdominal pain with nausea and vomiting for 1 day. Pain reported as sharp , nonradiating, 9 out of 10, localized to mid to lower abdomen on the right. No fever or chills. She denied chest pain or shortness of breath. She denied diarrhea. Upon evaluation vital signs were stable. Laboratory work-up revealed no leukocytosis, stable hemoglobin and hematocrit. Potassium 3.2. Urinalysis revealed evidence of UTI. Urine test was negative. CT abdomen and pelvis revealed ventral hernia adjacent to the umbilicus, containing a loop of small bowel. Slight infiltration of the fat within the hernia sac raises the possibility of very mild strangulation, and very slight prominence of the entering small bowel raises possibility of a mild degree of obstruction. Fatty liver Surgeon subsequently was contacted for urgent evaluation . Patient was admitted for further management CONSULTANTS: surgery [facility] COURSE: Surgeon seen the patient in emergency department. Patient required surgery for incarcerated ventral hernia. Patient subsequently undergone ventral herniorrhaphy with application of mesh plug and reconstruction of the umbilicus. The patient was on a medical surgical floor. Potassium was replaced. Patient started on empiric antibiotics for possible UTI. Pain management was addressed. Patient was on the IV fluids and initially was kept n.p.o. DVT prophylaxis with SCD provided. Surgeon seen the patient the next day . patient was started on diet and was advanced as tolerated. Ambulation was encouraged. Patient clinically stabilized. Patient was able to tolerate diet. Pain was controlled. Patient ambulated freely in the hallway and voided without difficulties. Incision with dressing remained clean, dry and intact. Patient clinically stabilized and was ready for discharge home . Outpatient follow-up with surgeon as advised in one week. Due to rapid and unexpected improvement in patient condition, patient was discharged in 1 day. FINAL DIAGNOSES: Incarcerated ventral hernia Status post ventral herniorrhaphy with application of mesh plug . Reconstruction of the umbilicus. DISCHARGE MEDICATIONS: See Medication Reconciliation list. DISCHARGE INSTRUCTIONS: Patient was discharged home. Patient to follow-up with a surgeon in 1 week. Dressing to be removed by surgeon. Patient may shower. Activity as tolerated. I have been assigned to dictate discharge summary for this account. I was not involved in the patient's management. Dania Pozo NP Feb 22, 2019 10:12
== END 2019-02-21 16:03 | disposition home or self-care (01) | DRG 227 ==
LOC: EMR 09:35 → INTOOBSV 11:56 → 3E 11:56 → OBSVTOIN 11:56 → EDBEDREQ 12:30
PROC: 0WUF0JZ Supplement Abdominal Wall with Synthetic Substitute, Open Approach (ICD-10-PCS; principal; 2019-02-20 16:00)
DX: K43.6 Other and unspecified ventral hernia with obstruction, without gangrene (principal); Z85.43 Personal history of malignant neoplasm of ovary; Z90.710 Acquired absence of both cervix and uterus; N39.0 Urinary tract infection, site not specified
CPT/HCPCS: 36415; 74177; 80048; 80053; 81003; 83690; 84703; 85025; 85610; 85730; 86850; 86900; 86901; 87086; 94003; 94150; 96374; 96375; 96376; 99285; J2405; J2710; J7030